=== PATIENT | female | born 1995 | race African-American/Black ===

== ENCOUNTER 2017-01-15 02:41 | Emergency (ER) | payer OTHER ==
[~2017-01-15] VITALS: Ht 160 cm; Wt 90.5 kg
[~2017-01-15 02:41] MED LIST: BCPILLS PO; RANI1TAB13 PO
[2017-01-15 02:45] VITALS: TEMP 36.8; Ht 160 cm; Wt 90.5 kg
[2017-01-15] MEDS ORDERED: GI COCKTAIL PO STA (03:00)
[2017-01-15] MEDS ORDERED: SODIUM CHLORIDE 0.9% 1000ML 1,000 ML IV STA (03:00)
[2017-01-15] MEDS ORDERED: ONDANSETRON INJ 2 MG/ML 2 ML VIAL IV STA (03:00)
[2017-01-15] MEDS ORDERED: LIDOCAINE HCL 2% VISC SOLN 20 ML UDC ONE (03:16)
[2017-01-15] MEDS ORDERED: ALUMINUM/MAGNESIUM SUSP 30 ML UDC ONE (03:16)
[2017-01-15 03:24] LABS: BASO % 0.3 %; BASO ABS # 0.02 K/uL (0-0.2); COMPLETE YES; EOS % 0.5 %; HEMATOCRIT 38.8 % (37-47); IG% 0.2 %; LYMPH % 31.8 %; LYMPH ABS # 2.09 K/uL (1.2-3.4); MEAN CELL VOLUME 77.4 fL (80-100); MEAN CORPUSCULAR HEMOGLOBIN 26.9 pg (25-34); MEAN CORPUSCULAR HGB CONC 34.8 g/dl (32-36); MEAN PLATELET VOLUME 12.7 fL (7.4-10.4); MONO % 8.4 %; NEUT % 58.8 %; PLATELET COUNT 190 K/uL (130-400); RED BLOOD COUNT 5.01 M/uL (4.2-5.4); WHITE BLOOD COUNT 6.57 K/uL (4.8-10.8)
[2017-01-15 03:27] LABS: MANUAL MICROSCOPIC REQUIRED? NO; REVIEW REQ? NO; URINE APPEARANCE CLEAR (CLEAR); URINE BILIRUBIN NEG (NEG); URINE COLOR YELLOW; URINE EPITHELIAL CELL AUTO >30 /lpf (0-5); URINE NITRITE NEG (NEG); URINE PH >= 9.0 (4.5-7.5); URINE SPECIFIC GRAVITY 1.022 (1.000-1.030); UROBILINOGEN NEG (NEG); ZZUR CULT IF INDIC CLEAN CATCH NO
[2017-01-15 03:50] LABS: BUN/CREATININE RATIO 12.3 (10-20); CALCIUM 8.6 mg/dl (8.5-10.1); POTASSIUM 4.2 mmol/L (3.5-5.1)
[2017-01-15] MEDS ORDERED: MoRPHine SULFATE 4 MG/ML 1 ML CARP\\VIAL IV STA (04:04)
[2017-01-15 06:23] LABS: CKMB/CK RATIO 0.5 (0-3.0)
--- NOTE | 2017-01-15 06:32 | DIAGNOSTIC IMAGING REPORT ---
CHEST 2 VIEWS ROUTINE CLINICAL HISTORY: Epigastric and chest pain. COMPARISON STUDY: Chest radiograph September 06, 2016. FINDINGS: Lung volumes are normal. Lungs are clear. There is no pneumothorax or pleural effusion. Cardiac size is normal. Mediastinal contours are normal. There is no evidence of pulmonary edema. IMPRESSION: No acute cardiopulmonary findings. Electronically signed by: lJ Nielsen M.D. 01/15/2017 6:31 AM Dictated Date/Time: 01/15/2017 6:29 AM
--- NOTE | 2017-01-15 06:33 | EMERGENCY ROOM VISIT NOTE ---
History First contact with patient: 02:46 Chief Complaint: ABDOMINAL PAIN Stated Complaint: ABDOMINAL PAIN Nursing Triage Summary: Patient reports abdominal pain and indigestion since 1900. Patient also vomited x4 prior to EMS arrival. Patient reports she had H. Pylori 2 months ago and was on antibiotics for 2 months, just finished 1-2 weeks ago. Patient reports symptoms feel the same. History of Present Illness The patient is a 22 year old female who presents to the Emergency Room with complaints of epigastric abdominal pain and heartburn. The patient reports that she has had epigastric abdominal pain, reflux and vomiting which began today. She states she had 4 episodes of vomiting. She does have a history of H. pylori and states that she finished a course of medication for this 2 months ago. She states that she stopped the medications over the past few weeks. She was previously seen and treated by [facility]. She reports that this does feel similar to previous episodes of H. pylori. She denies any fevers, urinary symptoms, changes in bowel movements, chest pain or shortness of breath. Review of Systems A complete 10-point Review of Systems was discussed with the patient, with pertinent positives and negatives listed in the History of Present Illness. All remaining Review of Systems questions can be considered negative unless otherwise specified. Social History Smoking Status: Never Smoker Drug Use: none Marital Status: single Housing Status: lives with roommate Occupation Status: student Current/Historical Medications Scheduled Control Pills ( Control Pills), 1 TAB PO DAILY Ranitidine Hcl (Acid Clinical Director), 1 TAB PO BID Allergies Coded Allergies: No Known Allergies (Unverified , 09/06/16) Physical Exam Vital Signs Date Time Temp Pulse Resp B/P Pulse Ox O2 Delivery O2 Flow Rate FiO2 01/15/17 06:37 58 20 90/50 99 01/15/17 06:29 58 20 90/50 99 Room Air 01/15/17 04:33 54 20 90/56 98 Room Air 01/15/17 02:45 36.8 58 18 109/71 99 Room Air Physical Exam VITALS: Vitals are noted on the nurse's note and reviewed by myself. Vital signs stable. GENERAL: This is a 22-year-old female, in no acute distress, nondiaphoretic, well-developed well-nourished. HEENT: Normocephalic. PERRLA. EOMI. Nares patent. Mucous membranes moist. Neck is supple without nuchal rigidity. HEART: Regular rate and rhythm without murmurs gallops or rubs. LUNGS: Clear to auscultation bilaterally without wheezes, rales or rhonchi. No retractions or accessory muscle use. ABDOMEN: Positive bowel sounds x 4. Soft, mild tenderness to the epigastric region. Negative Turpin sign. No guarding or rebound tenderness. NEURO: Patient was alert and oriented to person place and time. Medical Decision & Procedures ER Provider Diagnostic Interpretation: US RUQ: The gallbladder is unremarkable. Negative sonographic Turpin's sign. The common bile duct is within normal limits measuring up to 6.3 mm. The liver, and right kidney are unremarkable. Radiologist: Carlos A Ken MD Laboratory Results 01/15/17 03:15 Red Blood Count 5.01, Mean Corpuscular Volume 77.4, Mean Corpuscular Hemoglobin 26.9, Mean Corpuscular Hemoglobin Concent 34.8, Mean Platelet Volume 12.7, Neutrophils (%) (Auto) 58.8, Lymphocytes (%) (Auto) 31.8, Monocytes (%) (Auto) 8.4, Eosinophils (%) (Auto) 0.5, Basophils (%) (Auto) 0.3, Neutrophils # (Auto) 3.87, Lymphocytes # (Auto) 2.09, Monocytes # (Auto) 0.55, Eosinophils # (Auto) 0.03, Basophils # (Auto) 0.02 01/15/17 03:15 Test 01/15/17 03:15 01/15/17 05:49 White Blood Count 6.57 K/uL (4.8-10.8) Red Blood Count 5.01 M/uL (4.2-5.4) Hemoglobin 13.5 g/dL (12.0-16.0) Hematocrit 38.8 % (37-47) Mean Corpuscular Volume 77.4 fL (80-100) Mean Corpuscular Hemoglobin 26.9 pg (25-34) Mean Corpuscular Hemoglobin Concent 34.8 g/dl (32-36) Platelet Count 190 K/uL (130-400) Mean Platelet Volume 12.7 fL (7.4-10.4) Neutrophils (%) (Auto) 58.8 % Lymphocytes (%) (Auto) 31.8 % Monocytes (%) (Auto) 8.4 % Eosinophils (%) (Auto) 0.5 % Basophils (%) (Auto) 0.3 % Neutrophils # (Auto) 3.87 K/uL (1.4-6.5) Lymphocytes # (Auto) 2.09 K/uL (1.2-3.4) Monocytes # (Auto) 0.55 K/uL (0.11-0.59) Eosinophils # (Auto) 0.03 K/uL (0-0.5) Basophils # (Auto) 0.02 K/uL (0-0.2) RDW Standard Deviation 40.5 fL (36.4-46.3) RDW Coefficient of Variation 14.3 % (11.5-14.5) Immature Granulocyte % (Auto) 0.2 % Immature Granulocyte # (Auto) 0.01 K/uL (0.00-0.02) Urine Color YELLOW Urine Appearance CLEAR (CLEAR) Urine pH >= 9.0 (4.5-7.5) Urine Specific [place] 1.022 (1.000-1.030) Urine Protein NEG (NEG) Urine Glucose (UA) NEG (NEG) Urine Ketones NEG (NEG) Urine Occult Blood NEG (NEG) Urine Nitrite NEG (NEG) Urine Bilirubin NEG (NEG) Urine Urobilinogen NEG (NEG) Urine Leukocyte Esterase SMALL (NEG) Urine WBC (Auto) 1-5 /hpf (0-5) Urine RBC (Auto) 0-4 /hpf (0-4) Urine Hyaline Casts (Auto) 1-5 /lpf (0-5) Urine Epithelial Cells (Auto) >30 /lpf (0-5) Urine Bacteria (Auto) NEG (NEG) Urine Test NEG (NEG) Anion Gap 8.0 mmol/L (3-11) Est Creatinine Clear Calc Drug Dose 95.0 ml/min Estimated GFR () 93.3 Estimated GFR (Non- 80.5 BUN/Creatinine Ratio 12.3 (10-20) Calcium Level 8.6 mg/dl (8.5-10.1) Total Bilirubin 0.6 mg/dl (0.2-1) Aspartate Amino Transf (AST/SGOT) 355 U/L (15-37) Alanine Aminotransferase (ALT/SGPT) 220 U/L (12-78) Alkaline Phosphatase 78 U/L (45-117) Total Protein 6.8 gm/dl (6.4-8.2) Albumin 3.4 gm/dl (3.4-5.0) Globulin 3.4 gm/dl (2.5-4.0) Albumin/Globulin Ratio 1.0 (0.9-2) Chemistry Specimen Hemolysis Total Creatine Kinase 140 U/L (26-192) Creatine Kinase MB 0.7 ng/ml (0.5-3.6) Creatine Kinase MB Ratio 0.5 (0-3.0) Troponin I < 0.015 ng/ml (0-0.045) Medications Administered Medications (Trade) Dose Ordered Sig/Abdoulaye Route Start Time Stop Time Status Last Admin Dose Admin Sodium Chloride (Nss 1000ml) 1,000 ml @ 999 mls/hr Q1H1M STAT IV 01/15/17 03:00 01/15/17 04:00 DC 01/15/17 03:25 999 MLS/HR Ondansetron HCl (Zofran Inj) 4 mg NOW STAT IV 01/15/17 03:00 01/15/17 03:02 DC 01/15/17 03:23 4 MG Al Hydroxide/Mg Hydroxide (Maalox Susp) 30 ml STK-MED ONCE .ROUTE 01/15/17 03:16 01/15/17 03:19 DC 01/15/17 03:24 30 ML Lidocaine HCl (Viscous Lidocaine 2% Soln) 20 ml STK-MED ONCE .ROUTE 01/15/17 03:16 01/15/17 03:20 DC 01/15/17 03:24 20 ML Morphine Sulfate (MoRPHine SULFATE INJ) 4 mg NOW STAT IV 01/15/17 04:04 01/15/17 04:06 DC 01/15/17 04:11 4 MG ECG Rate (beats per minute): 50 Rhythm: sinus bradycardia Findings: no acute ischemic change, no ectopy Comparison ECG Date: no prior available Medical Decision Differential diagnosis includes cholecystitis, renal calculus, pyelonephritis, gastritis, peptic ulcer disease, perforated viscus, acute appendicitis, colitis , among others. The patient was evaluated as above. Labs were drawn and IV access was obtained. Imaging studies were performed and read by radiology as above. The patient was medicated as above. The patient was reassessed multiple times during their stay in the emergency department and remained in stable condition. The patient is a 22-year-old female who presents today complaining of epigastric abdominal pain. Review of the patient's records show that she has been here before for similar symptoms. Labs revealed no leukocytosis, anemia or concerning elect avoid abnormalities. LFTs were elevated. The cause of the patient's transaminases is unclear. She has had mild elevation of LFTs in the past. Abdominal series was performed and reviewed by myself and attending with no obvious acute findings. Ultrasound of the right upper quadrant was performed and was read by stat rad as unremarkable. Of note, the eligibility technician did call me and reported that she suspected a small pericardial effusion. EKG was obtained and was unremarkable. Cardiac enzymes were not elevated. Urinalysis was not suggestive of infection. Urine was be negative. The etiology of the patient's symptoms is unclear. They are most likely secondary to H. pylori, given the patient's history. She was instructed to follow-up closely with [facility] and possibly gastroenterology. She was instructed to follow-up here with worsening symptoms. Based on the patient's presentation, lab results, and imaging studies, I feel the patient is stable for outpatient treatment. The patient's case was reviewed with Dr. Moya, ED attending physician, who agreed with my assessment and treatment plan. Discharge instructions were reviewed with the patient. The patient verbalized understanding of my assessment and treatment plan and was discharged home in good condition. Impression Primary Impression: Epigastric abdominal pain Departure Information Dispostion Home / Self-Care Condition GOOD Referrals [facility] (PCP) Patient Instructions My [facility] Additional Instructions You have been treated in the Emergency Department for your abdominal pain and suspected Gastroesophageal Reflux Disease or GERD for short. Laboratory results and Imaging studies have ruled out any other emergent or surgical gastrointestinal issues. You should take Prilosec, 20 mg once daily before eating. You can consider using TUMS for relief of any indigestion that you might be experiencing. This drug is fast acting and can be used for immediate relief of your indigestion symptoms. You should eat a bland diet for the next few days. Some suggested bland dietary foods: Bananas, Rice, Applesauce, [place], or Boiled Chicken. These foods are easy to digest and help you to recover at a faster rate. All meals for the next few days should be small to shooter helper in bowel rest. For pain control, you can use the following [id number] medicines (if >12 yo): - Regular strength (325mg/tab) Tylenol (acetaminophen) 2 tabs every 4-6 hours as needed. Do not exceed 12 tablets in a 24 hour period. Avoid taking more than 4 grams (4000 mg) of Tylenol per day. This includes any other sources of acetaminophen you may take on a regular basis. - Regular strength (200 mg/tab) Advil (ibuprofen) 1-2 tabs every 4-6 hours as needed. Do not exceed a dose of 3200 mg per day. You should schedule a follow-up appointment with your Primary Care Provider in 2 -3 days for further evaluation from today's Emergency Department visit. Your Primary Care Provider should be involved in the addition of any new medications. Your Primary Care Provider may also refer you to a Salt Plant Operator, a doctor who specializes in the digestive system. Return to the Emergency Department if your current symptoms worsen despite treatment course outlined above, or if you develop any of the following symptoms : worsening abdominal pain, associated chest or back pain, worsening nausea/ vomiting, dizziness, shortness of breath, blood in your vomit, or fainting.
[2017-01-15 06:37] VITALS: BP 90/50; PULSE 58; O2SAT 99
--- NOTE | 2017-01-15 07:12 | DIAGNOSTIC IMAGING REPORT ---
BILIARY ULTRASOUND CLINICAL HISTORY: ruq pain, vomiting COMPARISON STUDY: No previous studies for comparison. FINDINGS: The pancreas appears sonographically normal. No focal hepatic masses are visualized. There are multiple gallstones present. There is no gallbladder wall thickening. There is no pericholecystic fluid. The common bile duct is at the upper limits of normal diameter measuring 6 mm. There are mildly prominent intrahepatic ducts within the right lobe. There is no right-sided hydronephrosis. There is a possible pericardial effusion. IMPRESSION: 1. Cholelithiasis with slight prominence of the right lobe intrahepatic ducts. The common bile duct is at the upper limits of normal in size measuring 6 mm. This report will be called as the gallstones were not described in the pulmonary report 2. Suspected small pericardial effusion Electronically signed by: Danny Castaneda M.D. 01/15/2017 7:11 AM Dictated Date/Time: 01/15/2017 7:07 AM
== END 2017-01-15 06:39 | disposition home or self-care (01) ==
LOC: EDBD 02:41 → C.EDA 02:45
DX: R10.13 Epigastric pain (principal); Z79.3 Long term (current) use of hormonal contraceptives; Z79.899 Other long term (current) drug therapy